=== PATIENT | male | born 1990 | race Caucasian/White ===

== ENCOUNTER 2017-08-27 09:22 | Emergency (ER) | payer MEDICAID ==
[~2017-08-27] VITALS: Ht 157.5 cm; Wt 56.3 kg
[2017-08-27 09:23] VITALS: BP 136/85
== END 2017-08-27 10:58 | disposition home or self-care (01) ==
LOC: ED 10:54
DX: S02.652A Fracture of angle of left mandible, initial encounter for closed fracture (principal); Z88.8 Allergy status to other drugs, medicaments and biological substances; W19.XXXA Unspecified fall, initial encounter; Y93.89 Activity, other specified; Y92.410 Unspecified street and highway as the place of occurrence of the external cause; Y99.9 Unspecified external cause status
CPT/HCPCS: 70100; 99284

== ENCOUNTER 2017-11-29 06:24 | Emergency (ER) | payer MEDICAID ==
[~2017-11-29] VITALS: Ht 175.3 cm; Wt 59.3 kg
[2017-11-29 07:58] VITALS: BP 147/79
== END 2017-11-29 08:12 | disposition home or self-care (01) ==
LOC: ED 07:10
DX: S02.652A Fracture of angle of left mandible, initial encounter for closed fracture (principal); F17.210 Nicotine dependence, cigarettes, uncomplicated; X58.XXXA Exposure to other specified factors, initial encounter; Y93.89 Activity, other specified; Y92.89 Other specified places as the place of occurrence of the external cause; Y99.8 Other external cause status
CPT/HCPCS: 70100; 99284

== ENCOUNTER 2018-01-30 05:12 | Emergency (ER) | payer MEDICAID ==
[~2018-01-30] VITALS: Ht 172.7 cm; Wt 65.2 kg
[2018-01-30 05:13] VITALS: BP 140/91
[2018-01-30] MEDS ORDERED: CEPHALEXIN 500 MG CAPSULE PO ONE (06:00)
[2018-01-30] MEDS ORDERED: HYDROcodone/APAP 5/325 TABLET PO ONE (06:00)
[2018-01-30] MEDS ORDERED: HYDROcodone/APAP 5/325 TABLET ONE (06:05)
[2018-01-30] MEDS ORDERED: CEPHALEXIN 500 MG CAPSULE ONE (06:06)
== END 2018-01-30 06:58 | disposition home or self-care (01) ==
LOC: ED 06:52
DX: R68.84 Jaw pain (principal); G89.11 Acute pain due to trauma
CPT/HCPCS: 70100; 99284

== ENCOUNTER 2020-10-09 16:15 | Emergency (ER) | payer MEDICAID ==
[~2020-10-09] VITALS: Ht 172.7 cm; Wt 60.5 kg
[2020-10-09 16:29] VITALS: BP 111/64
[2020-10-09] MEDS ORDERED: LIDOCAINE 1%, 10ML INFIL ONE (17:00)
--- NOTE | 2020-10-09 17:11 | NUR ---
[employer]: PT TO ROOM FROM BATHROOM
[2020-10-09] MEDS ORDERED: LIDOCAINE-MPF 1%, 5ML ONE (17:13)
--- NOTE | 2020-10-09 17:13 | NUR ---
AT BEDSIDE FOR EVAL.
[2020-10-09] MEDS ORDERED: DIPH,PERTUSS(ACELL),TET VAC/PF 0.5 ML IM-VACC ONE ×2 (17:30→18:02)
--- NOTE | 2020-10-09 18:08 | NUR ---
Patient given discharge instructions and they have confirmed that they understand the instructions. Patient ambulatory with steady gait.
== END 2020-10-09 18:09 | disposition home or self-care (01) ==
LOC: ED 17:26
DX: L02.416 Cutaneous abscess of left lower limb (principal); L03.116 Cellulitis of left lower limb
CPT/HCPCS: 10060; 90471; 90715; 99283